=== PATIENT | male | born 1950 | race Caucasian/White ===

== ENCOUNTER 2016-10-01 05:44 | Inpatient (IN) | payer MEDICARE, BC ==
[2016-09-25 10:28] LABS: WBC (NOT ORDERED) (RFLEX) 0 (0-5)
[2016-09-25 10:52] LABS: BASOPHILS 0.3 %; BASOPHILS ABSOLUTE 0.03 10/3/uL (0.0-0.16); EOSINOPHILS 2.1 %; EOSINOPHILS ABSOLUTE 0.18 10/3/uL (0.0-0.53); HEMATOCRIT 34.6 % (40.0-51.0); HEMOGLOBIN 10.6 g/dL (13.6-17.8); IMMATURE GRANULOCYTES 0.3 %; IMMATURE GRANULOCYTES ABSOLUTE 0.03 10/3/uL (0.0-0.11); LYMPHOCYTES 10.7 %; LYMPHOCYTES ABSOLUTE 0.93 10/3/uL (0.67-4.30); MANUAL DIFF NO %; MEAN CORPUS HGB CONC 30.6 g/dL (32.0-36.0); MEAN CORPUSCULAR HEMOGLOB 26.9 pg (26.0-34.0); MEAN CORPUSCULAR VOLUME 87.8 fL (80-100); MEAN PLATELET VOLUME 9.4 fL (9.2-13.0); MONOCYTES 9.3 %; MONOCYTES ABSOLUTE 0.81 10/3/uL (0.21-1.20); NEUTROPHILS 77.3 %; NEUTROPHILS ABSOLUTE 6.75 10/3/uL (2.02-8.40); PLATELET COUNT 392 10/3/uL (150-400); RBC DISTRIBUTION WIDTH 14.5 % (12.0-16.0); RED CELL COUNT 3.94 10/6/uL (4.7-6.1); WHITE BLOOD CELLS 8.7 10/3/uL (4.5-10.5)
[2016-09-25 11:02] LABS: INTERNATIONAL NORMAL RATI 1.2 UNITS (-); PROTIME (NOT ORD) 15.2 SEC (12.0-14.5)
[2016-09-25 11:11] LABS: A/G RATIO 0.7 (0.7-1.9); ALBUMIN 2.9 G/DL (3.5-5.0); ALKALINE PHOSPHATASE 158 U/L (45-117); BUN (BLOOD UREA NITROGEN) 17 MG/DL (6-23); CALCIUM, SERUM 8.9 MG/DL (8.5-10.4); CHLORIDE, SERUM 107 MMOL/L (96-112); CO2 (CARBON DIOXIDE) 28 MMOL/L (24-34); GFR AFRICAN AMERICAN 102 ML/MIN (>=60); GFR NON AFRICAN AMERICAN 88 ML/MIN (>=60); GLOBULIN 4.3 G/DL (2.5-4.1); GLUCOSE, SERUM 96 MG/DL (60-99); POTASSIUM, SERUM 4.4 MMOL/L (3.5-5.3); SGOT(AST) 45 U/L (5-40); SGPT(ALT) 63 U/L (5-65); SODIUM, SERUM 144 MMOL/L (135-148); TOTAL BILIRUBIN 0.4 MG/DL (0-1.2); TOTAL PROTEIN 7.2 G/DL (6.0-8.5)
[2016-09-25 11:15] LABS: ASCORBIC ACID (UR NOT ORDER) NEG (NEG); BILIRUBIN, URINE NEGATIVE (NEG); KETONE, URINE NEGATIVE (NEG); LEUKOCYTE ESTERASE(NOT OR NEG (NEG)
--- NOTE | ~2016-10-01 | OP ---
Record Of Operation [facility] [address] [place]. [address] NAME: KARELY TEJADA JR : 48 STATUS : ADM IN PAT#: [id number] AGE: 66 ADM/REG DATE : 10/01/16 MR#: [id number] REPORT SERV DATE: 10/12/16 DICTATED BY: CECILY GRANGER DATE: 10/12/16 REPORT STATUS : Draft TRANSCRIBED BY: MODEvie DATE: 10/12/16 DATE OF PROCEDURE: 10/12/2016 PREOPERATIVE DIAGNOSES: 1. Persistent air leak after left lung decortication. 2. Status post coronary artery bypass grafting with persistent left pleural effusion. 3. Hypertension. POSTOPERATIVE DIAGNOSES: 1. Persistent air leak after left lung decortication. 2. Status post coronary artery bypass grafting with persistent left pleural effusion. 3. Hypertension. PROCEDURE PERFORMED: Left video-assisted thoracoscopic surgery with talc pleurodesis of the lung. COMPUTER SYSTEM TECHNICIAN: Randi Carvalho. ANESTHESIA: General. INDICATIONS: Mr. Tejada is a pleasant 66-year-old gentleman who last fall underwent an uncomplicated bypass surgery with bilateral mammary artery harvest. Postoperatively, he did well, but he developed pleural effusion on the left that had been drained several times with needles. Because of persistent recurrent pleural effusion, it was felt the patient should undergo a VATS with possible decortication of the lung. This was performed on the 10/01/2016, and since then, the patient has persistent air leak of the chest tube. I felt the patient should go back for talc pleurodesis and evaluation of the lung to see if there is one area of the persistent leak. This was discussed with the patient and his and they wished proceed. FINDINGS: 1. There was no blebs seen on the surface of the lung. The lung actually looked pretty good with no evidence of recurrent entrapment. There was some parietal pleura still on the surface of the diaphragm of the left chest and this was left in place. 2. There were no areas of suspicion for a persistent air leak, but the lung was fragile and very friable and tore in several places. 3. The lung was freed up as much as possible and avoided as much tearing of the lung as possible. We did wash out any clot or residual clot from the other operation 11 days ago. 4. Talc pleurodesis with 5 g of aerosolized talc was utilized. Chest tube was placed. PATHOLOGIC SPECIMENS: None. DESCRIPTION OF PROCEDURE: The patient was brought to the operating suite where general anesthesia was induced. Airway secured with a dual-lumen endotracheal tube. Lines secured by Anesthesia. The patient was rolled in a right lateral decubitus position. The left Record Of Operation [facility] [address] [place]. [address] NAME: KARELY TEJADA JR : 48 STATUS : ADM IN PAT#: [id number] AGE: 66 ADM/REG DATE : 10/01/16 MR#: [id number] REPORT SERV DATE: 10/12/16 DICTATED BY: CECILY GRANGER DATE: 10/12/16 REPORT STATUS : Draft TRANSCRIBED BY: NAMAN DATE: 10/12/16 chest prepped with Hibiclens and ChloraPrep and draped with Ioban sterile sheets. Braswell catheter was placed after going to sleep. The left lung was deflated by Anesthesia and a 3-4 cm VATS incision was made along the posterior axillary line and one intercostal space above the previous VATS incision. This was carried through the subcutaneous tissue and the chest wall musculature. We tried to enter the chest, but the lung was stuck firmly up to the chest wall at this site. Therefore, we tried to get access and used a thoracoscope to assist us with this and we got one little area space within the left pleural cavity that we could place a sucker and try to free up the lung from this site. Additionally, we used the chest tube site, it was removed just after going to sleep. After irrigating this tract out, we placed a long thoracoscope through the chest, tube tract into the chest, and a long sucker was placed and we were able to free up the lung further. Eventually, we were able to place a Protractor soft tissue retractor through the largest of the VATS incisions. Then, the lung was freed up as much as I felt comfortable with. The lung was very friable and fragile and did tear in several places. Because of the lung had some dense adhesions, and from the first operation, he had actual significant pneumonotomies that we did not want to reopen. Once the lung was freed up, we decided to discontinue freeing the lung further. At this point, we irrigated the chest and hemostasis was obtained. Then, the saline was placed into the chest and the lung was ventilated by Anesthesia and no significant leaks were seen other than the new tears made today. At this point, I felt that we should go ahead and talc pleurodes the lung. A 24-[place] Jon tube was placed through a separate stab incision along the posterior axillary line and brought up through the skin. This laid posterior along the gutter of the lung. Then, 5 g of aerosolized talc were placed into the chest without difficulty. The lung was then inflated by Anesthesia. Then, hemostasis of the incisions were made. The VATS incision was closed in layers with absorbable suture and skin was closed in subcuticular fashion. The two old chest tube sites were reapproximated with two interrupted sutures of Prolene. The patient tolerated the procedure well. There were no complications. Sponge and needle counts were correct. At the end of the operation, the patient was extubated in the operating room and he had a small air leak residual, which is improved from preop. NORRIS/NAMAN Cecily Granger M.D. / [id number] CC: Record Of Operation [address] [address] NAME: KARELY TEJADA JR : 48 STATUS : ADM IN [facility]#: [id number] AGE: 66 ADM/REG DATE : 10/01/16 MR#: [id number] REPORT SERV DATE: 10/12/16 DICTATED BY: CECILY GRANGER DATE: 10/12/16 REPORT STATUS : Draft TRANSCRIBED BY: NAMAN DATE: 10/12/16 Sherri Pulliam M.D.
--- NOTE | ~2016-10-01 | OP ---
Record Of Operation [facility] [address] [place]. [address] NAME: KARELY TEJADA JR : 48 STATUS : ADM IN [facility]#: [id number] AGE: 66 ADM/REG DATE : 10/01/16 MR#: [id number] REPORT SERV DATE: 10/01/16 DICTATED BY: CECILY GRANGER DATE: 10/01/16 REPORT STATUS : Draft TRANSCRIBED BY: MODL DATE: 10/01/16 DATE OF PROCEDURE: 10/01/2016 PREOPERATIVE DIAGNOSES: 1. Entrapped left lung with chronic and complex pleural effusion. 2. Status post previous coronary artery bypass grafting. PROCEDURE PERFORMED: 1. Left lung decortication, complete. 2. Left thoracoscopy. SURGEON: Cecily Granger M.D. ASSEMBLER CATERPILLAR SPIDER: Isaac Mahoney. ANESTHESIA: General. INDICATIONS: Mr. Tejada underwent an uncomplicated coronary bypass grafting x5 last March by myself. He had bilateral mammaries performed at that time. Postoperatively, he did well, but he developed left pleural fluid and had this fluid drained on several occasions, unfortunately continued to recur. His primary care physician obtained a chest CT at [facility] [place] in August and it showed a complex left pleural effusion with a very small right pleural effusion and bibasilar atelectasis. Because of recurrent pleural effusions and shortness of breath, the patient was felt to be a candidate for left thoracoscopy and decortication of lung. He did have a left thoracentesis where they obtained 950 mL of bloody fluid with an elevated LDH. We discussed this operation with the patient and his and they wished to proceed. FINDINGS AT OPERATION: 1. See photographs. There is a complex left pleural effusion with peel over left lower lobe and left upper lobe. Lung was decorticated as much as possible on the left side. There was thick peel over the diaphragm and a large, thick stent, this was removed. There was also pleural peel on the surface of the thoracic cavity and this was removed also as much as possible. 2. Cultures of the pleural fluid and pathology of the pleural peel were sent. DESCRIPTION OF PROCEDURE: The patient was brought to the operating suite where general anesthesia was induced. The airway was secured with a dual lumen endotracheal tube. Lines secured by Anesthesia. The patient was rolled in a right lateral decubitus position. Left chest was prepped with Hibiclens and ChloraPrep and draped with Ioban sterile sheets. Left lung was deflated by Anesthesia. Then, a 3-4 cm VATS incision was made along the posterior axillary line and four intercostal spaces above the costal margin. This was carried through subcutaneous tissue and chest wall musculature. The intercostal musculature was divided and we entered the chest bluntly. A protractor soft tissue retractor was then placed. We encountered a large amount of bloody Record Of Operation [address] [place]. [address] NAME: KARELY TEJADA JR : 48 STATUS : ADM IN PAT#: [id number] AGE: 66 ADM/REG DATE : 10/01/16 MR#: [id number] REPORT SERV DATE: 10/01/16 DICTATED BY: CECILY GRANGER DATE: 10/01/16 REPORT STATUS : Draft TRANSCRIBED BY: MODEvie DATE: 10/01/16 serous fluid and some of this was sent for cultures and some for cytology. On placing the scope inside of the chest, photograph was made demonstrating complex effusion. Two additional 1-2 cm incisions were made along the anterior axillary line and two intercostal spaces above and below this previous site for the procedure and placement of chest tubes at the end. The left lung was decorticated nearly completely. The left lower lobe was freed up to a large extent. There was large peel over the lower portion of the upper lobe and this was likewise removed. The diaphragmatic surface was freed up completely along with the posterior chest wall. There was pleural peel extending on to the thoracic cavity and this decorticated as much as possible also. After about two hours of attempted decortication, the lung was expanded and filled the chest very nicely. There was a small rent in the left lung with small air leak observed. Irrigation of the chest was performed and hemostasis was then obtained. A right angle chest tube was placed through the most superior thoracoscopic port site along the anterior axillary line and this was secured to the skin. A straight 32-N[place] tube was placed through the lower anterior axillary line VATS incision, this was secured to the skin. Then, the largest of the VATS incision was closed after removing the soft tissue retractor. This was closed in layers with absorbable suture and skin was closed in subcuticular fashion. Lung was ventilated by Anesthesia and prior to closure, a thoracoscopic examination demonstrated good filling of all areas including over the diaphragm. The patient tolerated the procedure well. There were no complications. Sponge and needle counts were correct. DISPOSITION: Thoracic epidural was placed by Dr. Garnett at the conclusion of the case. The patient was taken to the recovery room in stable and extubated condition. NORRIS/NAMAN Cecily Granger M.D. / [id number] CC: Sherri Pulliam M.D.
--- NOTE | ~2016-10-01 | DS ---
Discharge Summary [facility] [address] [place]. [address] NAME: KARELY TEJADA JR : 48 STATUS : DIS IN PAT#: [id number] AGE: 66 ADM/REG DATE : 10/01/16 MR#: [id number] REPORT SERV DATE: 10/26/16 DICTATED BY: CECILY GRANGER DATE: 10/25/16 REPORT STATUS : Draft TRANSCRIBED BY: NAMAN DATE: 10/25/16 Data Collection from hospitalization DISCHARGE DIAGNOSES: 1. Left complex effusions. 2. Hypertension. 3. Hyperlipidemia. 4. Peripheral arterial disease. 5. Stage 2 chronic kidney disease. 6. History of seizures. CONSULTATIONS: None. PROCEDURES: 1. Left lung decortication, complete left thoracoscopy in 10/01/2016. 2. Left video-assisted thoracic surgery with talc pleurodesis of the lungs, 10/12/2016. 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 No tumor seen. DISCHARGE MEDICATIONS: Aspirin 162 mg daily, Lipitor 40 mg at bedtime, Advil 200 mg every six hours as needed, Vimpat 100 mg twice a day, Keppra 1500 mg twice a day, Prinivil 10 mg daily, Lopressor 12.5 mg twice a day, NitroQuick 0.4 mg sublingually as needed, and Percocet 10/325 one tablet every four hours as needed. CONDITION ON DISCHARGE: Stable. DISPOSITION: The patient was discharged home on a regular diet with activities as instructed. He would follow up with Everett Maddox, 10/23/2016. HOSPITAL COURSE: This is a 66-year-old man who had undergone an uncomplicated coronary artery bypass grafting x5, last March by me. He had bilateral mammaries performed at that time. Postoperatively, he did well, but developed left pleural fluid and had this fluid drained on several occasions, but unfortunately, it continued to reoccur. His primary care physician obtained a chest CT at [facility] in August and it showed a complex left pleural effusion with a very small right pleural effusion and bibasilar atelectasis. Because of recurrent pleural effusions and shortness of breath, the patient was felt to be a candidate for left thoracoscopy and decortication of the lung. He did have a left thoracentesis where they obtained 950 mL of bloody fluid with an elevated LDH. Treatment options were discussed and it was elected to proceed with surgical interventions. He was admitted to the hospital at this time for further evaluation and treatment. Upon admission, he was taken to the operating room, where he underwent the above-mentioned procedure. He tolerated this well. There were no complications. On postop day #1, he said he was feeling better. He had an air leak/bubbling on the left. Chest x-ray revealed left apical pneumothorax. His incisions looked okay. He had good pain control. On the , he had no additional complaints of pain. His epidural was still in place. Chest x-ray showed Discharge Summary [address] [address] NAME: KARELY TEJADA : 48 STATUS : DIS IN PAT#: [id number] AGE: 66 ADM/REG DATE : 10/01/16 MR#: [id number] REPORT SERV DATE: 10/26/16 DICTATED BY: CECILY GRANGER DATE: 10/25/16 REPORT STATUS : Draft TRANSCRIBED BY: MODEvie DATE: 10/25/16 a decrease in the left pneumothorax. He remained afebrile. The epidural catheter was removed and the tip was intact. On , he was up sitting in a chair. He had no shortness of breath. Chest tube had no air leak. Chest x-ray showed decrease in left apical and left basilar pneumothoraces. There was a left basilar hydropneumothorax. The patient has had persistent air leak of the chest tube. It was felt that the patient should go back for talc pleurodesis and evaluation of the lung to see if there was one area of the persistent leak. He continued to have the air leak and on 10/12/2016, he was taken back to the operating room where he underwent the above-mentioned procedure. He tolerated this well. There were no complications. On 10/13/2016, he was alert and cooperative. He had no new complaints. His wound looked okay. The epidural catheter was removed and the tip was intact. Discharge planning was performed. On 10/16/2016, he was breathing well. Chest tube was removed. Discharge instructions were given. Due to his improved and stable condition, he was discharged home with the above-stated instructions. Information collected by: Trupti James I submit the above information as my discharge summary. MARIA T/NAMAN Cecily Granger M.D. / [id number] CC: Sherri Pulliam M.D.
[~2016-10-01 05:44] MED LIST: ADVIL PO; ASA5GR PO; ASAB PO; CLINDA150 PO; KEPPRA500 PO; KLOR-CON20 MEQ PO; L40 PO; LIPITOR40 PO; LOP25 PO; NITROQUICK0.4 MG SL; NORCO1 TA1 PO; PLAVIX PO; PRIN10 PO; VIMPAT100 MG PO; VITC500 PO; ZOCOR40 PO
[2016-10-02 07:26] LABS: HEMATOCRIT 33.2 % (40.0-51.0); HEMOGLOBIN 10.7 g/dL (13.6-17.8); MEAN CORPUSCULAR HEMOGLOB 27.9 pg (26.0-34.0); MEAN CORPUSCULAR VOLUME 86.7 fL (80-100); MEAN PLATELET VOLUME 9.8 fL (9.2-13.0); PLATELET COUNT 402 10/3/uL (150-400); RBC DISTRIBUTION WIDTH 14.6 % (12.0-16.0); RED CELL COUNT 3.83 10/6/uL (4.7-6.1)
[2016-10-02 07:27] LABS: MEAN CORPUS HGB CONC 32.2 g/dL (32.0-36.0)
[2016-10-02 07:28] LABS: MANUAL DIFF YES %
[2016-10-02 07:38] LABS: CALCIUM, SERUM 8.2 MG/DL (8.5-10.4); CHLORIDE, SERUM 105 MMOL/L (96-112); CO2 (CARBON DIOXIDE) 28 MMOL/L (24-34); CREATININE 1.09 MG/DL (0.70-1.30); GFR AFRICAN AMERICAN 81 ML/MIN (>=60); GFR NON AFRICAN AMERICAN 70 ML/MIN (>=60); POTASSIUM, SERUM 4.8 MMOL/L (3.5-5.3); SODIUM, SERUM 139 MMOL/L (135-148)
[2016-10-02 07:40] LABS: BUN (BLOOD UREA NITROGEN) 23 MG/DL (6-23); GLUCOSE, SERUM 122 MG/DL (60-99)
[2016-10-02 08:02] LABS: BAND NEUTROPHILS 12 %; LYMPHOCYTES 4 %; LYMPHOCYTES ABSOLUTE (CALC) 1.16 10/3/uL (0.67-4.30); MONOCYTES 6 %; MONOCYTES ABSOLUTE (CALC) 1.74 10/3/uL (0.21-1.20); PLATELET ESTIMATE SLT INC (ADEQUATE); RBC MORPHOLOGY NORM (NORMAL); SEGMENTED NEUTROPHIL (0) 78 %; TOTAL NUCLEATED CELLS 100
[2016-10-03 04:24] LABS: BASOPHILS 0.1 %; BASOPHILS ABSOLUTE 0.01 10/3/uL (0.0-0.16); EOSINOPHILS 0.1 %; EOSINOPHILS ABSOLUTE 0.02 10/3/uL (0.0-0.53); HEMATOCRIT 30.2 % (40.0-51.0); HEMOGLOBIN 9.7 g/dL (13.6-17.8); IMMATURE GRANULOCYTES 0.8 %; IMMATURE GRANULOCYTES ABSOLUTE 0.14 10/3/uL (0.0-0.11); LYMPHOCYTES 10.6 %; LYMPHOCYTES ABSOLUTE 1.79 10/3/uL (0.67-4.30); MANUAL DIFF NO %; MEAN CORPUS HGB CONC 32.1 g/dL (32.0-36.0); MEAN PLATELET VOLUME 10.2 fL (9.2-13.0); MONOCYTES 9.9 %; MONOCYTES ABSOLUTE 1.66 10/3/uL (0.21-1.20); NEUTROPHILS 78.5 %; NEUTROPHILS ABSOLUTE 13.19 10/3/uL (2.02-8.40); PLATELET COUNT 333 10/3/uL (150-400); RBC DISTRIBUTION WIDTH 14.5 % (12.0-16.0); RED CELL COUNT 3.47 10/6/uL (4.7-6.1); WHITE BLOOD CELLS 16.8 10/3/uL (4.5-10.5)
[2016-10-05 06:46] LABS: BASOPHILS 0.2 %; BASOPHILS ABSOLUTE 0.02 10/3/uL (0.0-0.16); EOSINOPHILS 5.7 %; EOSINOPHILS ABSOLUTE 0.46 10/3/uL (0.0-0.53); HEMATOCRIT 29.8 % (40.0-51.0); HEMOGLOBIN 9.4 g/dL (13.6-17.8); IMMATURE GRANULOCYTES 3.1 %; IMMATURE GRANULOCYTES ABSOLUTE 0.25 10/3/uL (0.0-0.11); LYMPHOCYTES 17.5 %; LYMPHOCYTES ABSOLUTE 1.42 10/3/uL (0.67-4.30); MEAN CORPUS HGB CONC 31.5 g/dL (32.0-36.0); MEAN CORPUSCULAR HEMOGLOB 27.2 pg (26.0-34.0); MEAN CORPUSCULAR VOLUME 86.1 fL (80-100); MEAN PLATELET VOLUME 9.8 fL (9.2-13.0); MONOCYTES 12.4 %; MONOCYTES ABSOLUTE 1.01 10/3/uL (0.21-1.20); NEUTROPHILS 61.1 %; NEUTROPHILS ABSOLUTE 4.96 10/3/uL (2.02-8.40); PLATELET COUNT 290 10/3/uL (150-400); RBC DISTRIBUTION WIDTH 14.9 % (12.0-16.0); RED CELL COUNT 3.46 10/6/uL (4.7-6.1)
[2016-10-05 06:47] LABS: WHITE BLOOD CELLS 8.1 10/3/uL (4.5-10.5)
[2016-10-05 06:48] LABS: MANUAL DIFF NO %
[2016-10-05 06:52] LABS: CALCIUM, SERUM 7.7 MG/DL (8.5-10.4); CHLORIDE, SERUM 109 MMOL/L (96-112); CO2 (CARBON DIOXIDE) 29 MMOL/L (24-34); CREATININE 0.76 MG/DL (0.70-1.30); GFR AFRICAN AMERICAN 109 ML/MIN (>=60); GFR NON AFRICAN AMERICAN 94 ML/MIN (>=60); GLUCOSE, SERUM 98 MG/DL (60-99); POTASSIUM, SERUM 4.2 MMOL/L (3.5-5.3); SODIUM, SERUM 142 MMOL/L (135-148)
[2016-10-05 06:56] LABS: BUN (BLOOD UREA NITROGEN) 16 MG/DL (6-23)
[2016-10-12 04:51] LABS: BASOPHILS 0.2 %; BASOPHILS ABSOLUTE 0.02 10/3/uL (0.0-0.16); EOSINOPHILS 3.5 %; HEMATOCRIT 29.7 % (40.0-51.0); HEMOGLOBIN 9.3 g/dL (13.6-17.8); IMMATURE GRANULOCYTES 0.9 %; IMMATURE GRANULOCYTES ABSOLUTE 0.08 10/3/uL (0.0-0.11); LYMPHOCYTES 15.3 %; MEAN CORPUS HGB CONC 31.3 g/dL (32.0-36.0); MEAN CORPUSCULAR HEMOGLOB 27.3 pg (26.0-34.0); MEAN CORPUSCULAR VOLUME 87.1 fL (80-100); MEAN PLATELET VOLUME 9.6 fL (9.2-13.0); MONOCYTES 11.3 %; MONOCYTES ABSOLUTE 0.96 10/3/uL (0.21-1.20); NEUTROPHILS 68.8 %; NEUTROPHILS ABSOLUTE 5.84 10/3/uL (2.02-8.40); PLATELET COUNT 312 10/3/uL (150-400); RBC DISTRIBUTION WIDTH 15.7 % (12.0-16.0); RED CELL COUNT 3.41 10/6/uL (4.7-6.1); WHITE BLOOD CELLS 8.5 10/3/uL (4.5-10.5)
[2016-10-12 04:54] LABS: MANUAL DIFF NO %
[2016-10-12 04:55] LABS: INTERNATIONAL NORMAL RATI 1.2 UNITS (-); PROTIME (NOT ORD) 14.7 SEC (12.0-14.5)
[2016-10-12 05:06] LABS: A/G RATIO 0.5 (0.7-1.9); ALBUMIN 2.2 G/DL (3.5-5.0); ALKALINE PHOSPHATASE 212 U/L (45-117); BUN (BLOOD UREA NITROGEN) 20 MG/DL (6-23); CALCIUM, SERUM 8.2 MG/DL (8.5-10.4); CHLORIDE, SERUM 108 MMOL/L (96-112); CO2 (CARBON DIOXIDE) 27 MMOL/L (24-34); CREATININE 0.79 MG/DL (0.70-1.30); GFR AFRICAN AMERICAN 108 ML/MIN (>=60); GFR NON AFRICAN AMERICAN 93 ML/MIN (>=60); GLOBULIN 4.1 G/DL (2.5-4.1); GLUCOSE, SERUM 100 MG/DL (60-99); POTASSIUM, SERUM 3.9 MMOL/L (3.5-5.3); SGOT(AST) 51 U/L (5-40); SGPT(ALT) 69 U/L (5-65); SODIUM, SERUM 142 MMOL/L (135-148); TOTAL BILIRUBIN 0.2 MG/DL (0-1.2); TOTAL PROTEIN 6.3 G/DL (6.0-8.5)
[2016-10-13 04:53] LABS: BASOPHILS 0.1 %; BASOPHILS ABSOLUTE 0.01 10/3/uL (0.0-0.16); EOSINOPHILS 0 %; HEMATOCRIT 29.2 % (40.0-51.0); HEMOGLOBIN 9.3 g/dL (13.6-17.8); IMMATURE GRANULOCYTES 0.6 %; IMMATURE GRANULOCYTES ABSOLUTE 0.09 10/3/uL (0.0-0.11); LYMPHOCYTES 3.1 %; LYMPHOCYTES ABSOLUTE 0.48 10/3/uL (0.67-4.30); MEAN CORPUS HGB CONC 31.8 g/dL (32.0-36.0); MEAN CORPUSCULAR HEMOGLOB 27.6 pg (26.0-34.0); MEAN CORPUSCULAR VOLUME 86.6 fL (80-100); MEAN PLATELET VOLUME 9.8 fL (9.2-13.0); MONOCYTES 7.2 %; MONOCYTES ABSOLUTE 1.13 10/3/uL (0.21-1.20); NEUTROPHILS ABSOLUTE 13.92 10/3/uL (2.02-8.40); PLATELET COUNT 319 10/3/uL (150-400); RBC DISTRIBUTION WIDTH 15.5 % (12.0-16.0); RED CELL COUNT 3.37 10/6/uL (4.7-6.1); WHITE BLOOD CELLS 15.6 10/3/uL (4.5-10.5)
[2016-10-13 04:54] LABS: MANUAL DIFF NO %
[2016-10-13 05:38] LABS: BUN (BLOOD UREA NITROGEN) 17 MG/DL (6-23); CALCIUM, SERUM 8.2 MG/DL (8.5-10.4); CHLORIDE, SERUM 106 MMOL/L (96-112); CO2 (CARBON DIOXIDE) 26 MMOL/L (24-34); CREATININE 0.88 MG/DL (0.70-1.30); GFR AFRICAN AMERICAN 103 ML/MIN (>=60); GFR NON AFRICAN AMERICAN 89 ML/MIN (>=60); POTASSIUM, SERUM 4.3 MMOL/L (3.5-5.3); SODIUM, SERUM 140 MMOL/L (135-148)
[2016-10-13 05:42] LABS: GLUCOSE, SERUM 161 MG/DL (60-99)
[2016-10-16] MEDS ORDERED: PERCOCET 10/3251 TAB PO (08:28)
[2017-04-02] MEDS ORDERED: L40 PO (16:01)
== END 2016-10-16 10:46 | disposition home or self-care (01) | DRG 164 ==
LOC: SDC/OF 05:44 → PACU 11:52 → 5NO 14:18
PROVIDERS: Nurse Practitioner Family; Thoracic Surgery (Cardiothoracic Vascular Surgery)
PROC: 0BDP4ZZ Extraction of Left Pleura, Percutaneous Endoscopic Approach (ICD-10-PCS; principal; 2016-10-01 07:45)
PROC: 0BJQ4ZZ Inspection of Pleura, Percutaneous Endoscopic Approach (ICD-10-PCS; 2016-10-12)
PROC: 3E0L3GC Introduction of Other Therapeutic Substance into Pleural Cavity, Percutaneous Approach (ICD-10-PCS; 2016-10-12)
DX: J90 Pleural effusion, not elsewhere classified (principal); J95.812 Postprocedural air leak; I12.9 Hypertensive chronic kidney disease with stage 1 through stage 4 chronic kidney disease, or unspecified chronic kidney disease; Z95.1 Presence of aortocoronary bypass graft; N18.2 Chronic kidney disease, stage 2 (mild); E78.5 Hyperlipidemia, unspecified; I73.9 Peripheral vascular disease, unspecified; G40.909 Epilepsy, unspecified, not intractable, without status epilepticus
CPT/HCPCS: 36415; 71010; 71020; 80048; 80053; 81001; 82962; 83036; 85025; 85610; 85730; 86850; 86900; 86901; 86920; 87015; 87070; 87075; 87102; 87116; 87205; 87641; 88112; 88305; 93005; 94640; A9270-GY; J0690; J2250; J2370; J2405; J2710; J2795; J3010; P9045